=== PATIENT | male | born 1950 | race Caucasian/White ===

== ENCOUNTER 2018-06-11 08:36 | Inpatient (IN) | payer BC ==
[~2018-06-11 08:36] MED LIST: CEFAZOLIN 2 GM/50 ML (PMX) 50 ML IVPB; PHENYLephrine (100 MCG/ML) 10ML SYG; SEVOFLURANE 15 MIN
[2018-06-11] MEDS: DEXAMETHASONE 1 MG TAB PO (09:22)
[2018-06-11] MEDS: GABAPENTIN 300 MG CAP PO ×2 (09:22→20:09)
[2018-06-11] MEDS ORDERED: MIDAZOLAM 1 MG/ML 2 ML INJ (10:05)
[2018-06-11] MEDS ORDERED: ROCURONIUM 50 MG INJ (10:05)
[2018-06-11] MEDS ORDERED: PROPOFOL 20 ML (10:05)
[2018-06-11] MEDS ORDERED: ROPIVACAINE 0.5 % 30 ML VIAL (10:05)
[2018-06-11] MEDS ORDERED: CEFAZOLIN 1 GM INJ (10:05)
[2018-06-11] MEDS ORDERED: THROMBIN 5000 UNIT VIAL (10:43)
[2018-06-11] MEDS ORDERED: CA CHLORIDE 10% 10 ML SYRINGE (10:43)
[2018-06-11] MEDS ORDERED: BUPIVACAINE 0.5%/EPI (SDV) 30 ML INJ (10:43)
[2018-06-11] MEDS ORDERED: POLYMYXIN/BACITRACIN 1L IRRIG (10:43)
[2018-06-11] MEDS ORDERED: FENTAnyl 50 MCG/ML VIAL IV ×2 (11:00)
[2018-06-11] MEDS ORDERED: METOCLOPRAMIDE 10 MG INJ IV (11:00)
[2018-06-11] MEDS ORDERED: OXYCODONE/ACETAMINOPHEN (5/325) TAB PO ×2 (11:00)
[2018-06-11] MEDS ORDERED: LABETALOL HCL 20MG INJ IV (11:00)
[2018-06-11] MEDS ORDERED: EPHEDrine SULFATE 50 MG/5 ML SYG IV (11:00)
[2018-06-11] MEDS ORDERED: HYDROmorphONE 1 MG/5 ML IV SYRINGE IV (11:00)
[2018-06-11] MEDS ORDERED: hydrALAzine 20 MG INJ IV (11:00)
[2018-06-11] MEDS: TRANEXAMIC ACID 1,000 MG in DEXTROSE 5% 100 ML IVPB (11:40)
[2018-06-11] MEDS ORDERED: METOCLOPRAMIDE 10 MG INJ (11:49)
[2018-06-11] MEDS ORDERED: ONDANSETRON 4 MG INJ (11:49)
[2018-06-11] MEDS ORDERED: KETOROLAC 30 MG INJ (11:50)
[2018-06-11] MEDS ORDERED: DEXAMETHASONE 4 MG/ML 5 ML INJ (11:50)
[2018-06-11] MEDS: POLYMYXIN/BACITRACIN 1L IRRIG IRR (12:06)
[2018-06-11] MEDS: BUPIVACAINE 0.5% (SDV) 30 ML, morphine SULFATE (PF) 8 MG, EPINEPHrine 0.3 MG, KETOROLAC... IRR (12:06)
[2018-06-11] MEDS ORDERED: NEOSTIGMINE 3 MG/3 ML SYRINGE (12:28)
[2018-06-11] MEDS ORDERED: GLYCOPYRROLATE 0.4 MG INJ (12:28)
[2018-06-11] MEDS ORDERED: oxyCODONE 5 MG TAB PO (13:30)
[2018-06-11] MEDS ORDERED: LOPERAMIDE 2 MG CAP PO (13:30)
[2018-06-11] MEDS ORDERED: MAGNESIUM HYDROXIDE 30ML CUP PO (13:30)
[2018-06-11] MEDS ORDERED: NACL 0.9% 3 ML SYG IV (13:30)
[2018-06-11] MEDS ORDERED: DIPHENHYDRAMINE 50 MG INJ IV (13:30)
[2018-06-11] MEDS ORDERED: ONDANSETRON 4 MG INJ IV (13:30)
[2018-06-11] MEDS ORDERED: KETOROLAC 15 MG INJ IV (13:30)
[2018-06-11] MEDS: CEFAZOLIN 1 GM/50 ML (PMX) 50 ML IVPB ×2 (13:54→22:25)
[2018-06-11] MEDS: HYDROmorphONE 1 MG/5 ML IV SYRINGE IV ×2 (14:03→14:12)
[2018-06-11] MEDS: DIPHENHYDRAMINE 50 MG INJ IV (14:04)
[2018-06-11] MEDS: TRANEXAMIC ACID 1,000 MG in SOD CHLORIDE 0.9% 100 ML IVPB (14:04)
[2018-06-11] MEDS: MEPERIDINE 25 MG INJ IV (14:04)
[2018-06-11] MEDS: ONDANSETRON 4 MG INJ IV (14:04)
[2018-06-11] MEDS: ALBUTEROL 0.083% (NEB) 2.5 MG/3 ML AMP HHN (14:30)
[2018-06-11] MEDS: FENTAnyl 50 MCG/ML VIAL IV (14:38)
[2018-06-11] MEDS: ACETAMINOPHEN 500 MG TAB PO ×2 (18:37→23:48)
[2018-06-11] MEDS: oxyCODONE 5 MG TAB PO ×2 (18:37→22:31)
[2018-06-11] MEDS: DEXAMETHASONE 2 MG TAB PO ×2 (18:37→23:48)
[2018-06-11] MEDS: ATORVASTATIN 20 MG TAB PO (20:09)
[2018-06-11] MEDS: HYDROmorphONE 1 MG/ML SYG IV (20:09)
[2018-06-11] MEDS: SENNA/DOCUSATE NA (8.6MG/50MG) TAB PO (20:09)
[2018-06-11] MEDS: ZOLPIDEM 5 MG TAB PO (23:44)
[2018-06-12] MEDS: HYDROmorphONE 1 MG/ML SYG IV ×2 (02:18→08:10)
[2018-06-12] MEDS: ACETAMINOPHEN 500 MG TAB PO (06:11)
[2018-06-12] MEDS: CEFAZOLIN 1 GM/50 ML (PMX) 50 ML IVPB (06:11)
[2018-06-12] MEDS: DEXAMETHASONE 2 MG TAB PO (06:11)
[2018-06-12] MEDS: oxyCODONE 5 MG TAB PO ×2 (06:19→10:17)
[2018-06-12] MEDS: SERTRALINE 100 MG TAB PO (08:07)
[2018-06-12] MEDS: SENNA/DOCUSATE NA (8.6MG/50MG) TAB PO (08:07)
== END 2018-06-12 10:20 | disposition home or self-care (01) | DRG 483 ==
LOC: REC 08:36 → MS1 18:17
PROC: 0RRJ0JZ Replacement of Right Shoulder Joint with Synthetic Substitute, Open Approach (ICD-10-PCS; principal; 2018-06-11 11:33)
PROC: 0PB90ZZ Excision of Right Clavicle, Open Approach (ICD-10-PCS; 2018-06-11 11:33)
DX: M13.811 Other specified arthritis, right shoulder (principal)
CPT/HCPCS: 73030-RT; 86999; 88304; 88311; 94664; 97167